=== PATIENT | male | born 1990 | race Caucasian/White ===

== ENCOUNTER 2025-04-21 20:05 | Emergency (ER) | payer SELFPAY ==
[~2025-04-21] VITALS: Ht 180.3 cm; Wt 81.2 kg
[~2025-04-21 20:05] MED LIST: ALBU6.7H14 INH; CLIN-224 PO; LIDO20SO PO; NO HOME MEDS
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
[2025-04-21] MEDS: LIDOcaine 1% W/epiNEPHrine 1:100,000 20ml vial SQ ONE (21:30)
[2025-04-21] MEDS ORDERED: TETanus/Pertussis (Acell)/Diphther VAC/PF (Tdap-Adult) 0.5ml syringe IMVAC ONE (22:10)
[2025-04-21 22:24] VITALS: BP 116/80; PULSE 90; RESP 16; TEMP 98.6; O2SAT 99
== END 2025-04-21 22:25 | disposition home or self-care (01) ==
LOC: ER 20:05
DX: S01.81XA Laceration without foreign body of other part of head, initial encounter (principal); Y08.89XA Assault by other specified means, initial encounter; Y93.89 Activity, other specified; Y92.89 Other specified places as the place of occurrence of the external cause; Y99.8 Other external cause status
CPT/HCPCS: 12013; 70450; 72125; 99284; A6449